=== PATIENT | male | born 1985 | race Caucasian/White ===

== ENCOUNTER 2017-12-22 10:56 | Emergency (ER) | payer SELFPAY ==
[2017-12-22 12:49] LABS: #Eosinphils 0.3 thou/uL (0.0-0.7); #Monocytes 0.7 thou/uL (0.11-0.59); #Neutrophils 3.7 thou/uL (1.40-6.50); %Basophils 0.7 % (0.0-1.0); %Eosinophils 4.2 % (0.0-10.0); %Monocytes 9.7 % (0.0-10.0); %Neutrophils 55.3 % (42.0-75.0); Hemoglobin 14.4 g/dL (14.0-18.0); Mean Corpuscular HGB CONC 34.1 g/dL (32.0-36.0); Mean Corpuscular Hemoglobin 30.5 pg (27.0-31.0); Mean Corpuscular Volume 89.5 fL (78.0-98.0); Mean Platelet Volume 7.7 fL (7.4-10.4); Platelet Count 228 thou/uL (130-400); RBC Distribution Width 11.8 % (11.5-14.5); Red Blood Cell (RBC) Count 4.71 mill/uL (4.70-6.10); White Blood Cell (WBC) Count 6.7 thou/uL (4.8-10.8)
[2017-12-22 13:07] LABS: Bilirubin Negative (Negative); Blood, Urine Negative (Negative); Clarity CLEAR (Clear); Glucose, Urine (Dipstick) Negative (Negative); Leukocyte Negative (Negative); Nitrite Negative (Negative); Protein, Urine (Dipstick) Negative (Neg-Trace); Specific Gravity, Urine 1.019 (1.002-1.036); Urobilinogen 0.2 mg/dL (0.2-1.0)
[2017-12-22 13:10] LABS: ALT (SGPT) 42 U/L (8-55); AST (SGOT) 30 U/L (5-34); Albumin 4.4 g/dL (3.5-5.0); Alkaline Phosphatase 55 U/L (40-150); Anion Gap 11 mmol/L (10-20); BUN (Urea Nitrogen) 19 mg/dL (8.9-20.6); Bilirubin, Total 0.5 mg/dL (0.2-1.2); Calc. Creatinine Clearance 0 mL/min (70-130); Calcium 9.4 mg/dL (7.8-10.44); Carbon Dioxide 25 mmol/L (22-29); Chloride 104 mmol/L (98-107); Estimated GFR-MDRD Greater than 90; Globulin 2.9 g/dL (2.4-3.5); Glucose 110 mg/dL (70-105); Potassium 4.5 mmol/L (3.5-5.1); Protein, Total 7.3 g/dL (6.0-8.3); Sodium 135 mmol/L (136-145)
[2017-12-22] MEDS ORDERED: Dicyclomine 20 MG TAB ONE (14:03)
[2017-12-22] MEDS ORDERED: Ondansetron ODT 4 MG TAB ONE (14:03)
== END 2017-12-22 14:19 | disposition home or self-care (01) ==
LOC: ERS 10:56
DX: R19.7 Diarrhea, unspecified (principal); B20 Human immunodeficiency virus [HIV] disease; F41.9 Anxiety disorder, unspecified; F17.210 Nicotine dependence, cigarettes, uncomplicated
CPT/HCPCS: 36415; 80053; 81003; 82274; 85025; 87045; 87046; 87449; 87899; 99284; Q0162

== ENCOUNTER 2018-01-22 07:09 | Emergency (ER) | payer BC, SELFPAY | END 2018-01-22 08:22 | disposition home or self-care (01) | LOC: ERS 07:09 | DX: J01.90 Acute sinusitis, unspecified (principal); F17.210 Nicotine dependence, cigarettes, uncomplicated | CPT/HCPCS: 99283 ==

== ENCOUNTER 2018-03-08 07:21 | Emergency (ER) | payer BC | END 2018-03-08 08:29 | disposition home or self-care (01) | LOC: ERS 07:21 | DX: M54.5 Low back pain (principal); G89.29 Other chronic pain; F41.9 Anxiety disorder, unspecified; F17.210 Nicotine dependence, cigarettes, uncomplicated; B20 Human immunodeficiency virus [HIV] disease | CPT/HCPCS: 99283 ==

== ENCOUNTER 2018-03-19 07:17 | Emergency (ER) | payer BC ==
[2018-03-19] MEDS ORDERED: Ketorolac Tromethamine 30 MG/ML VIAL ONE (08:18)
[2018-03-19 08:29] LABS: #Basophils 0.1 thou/uL (0.0-0.2); #Eosinphils 0.3 thou/uL (0.0-0.7); #Monocytes 0.7 thou/uL (0.11-0.59); #Neutrophils 4.9 thou/uL (1.40-6.50); %Basophils 0.8 % (0.0-1.0); %Eosinophils 3.9 % (0.0-10.0); %Lymphocytes 24.8 % (21.0-51.0); %Monocytes 8.5 % (0.0-10.0); %Neutrophils 62.1 % (42.0-75.0); Hemoglobin 15.9 g/dL (14.0-18.0); Mean Corpuscular HGB CONC 33.4 g/dL (32.0-36.0); Mean Corpuscular Hemoglobin 30.9 pg (27.0-31.0); Mean Corpuscular Volume 92.4 fL (78.0-98.0); Mean Platelet Volume 8.3 fL (7.4-10.4); Platelet Count 230 thou/uL (130-400); RBC Distribution Width 12.9 % (11.5-14.5); Red Blood Cell (RBC) Count 5.14 mill/uL (4.70-6.10); White Blood Cell (WBC) Count 7.9 thou/uL (4.8-10.8)
[2018-03-19 08:52] LABS: ALT (SGPT) 17 U/L (8-55); AST (SGOT) 16 U/L (5-34); Albumin 4.4 g/dL (3.5-5.0); Alkaline Phosphatase 75 U/L (40-150); Anion Gap 13 mmol/L (10-20); BUN (Urea Nitrogen) 12 mg/dL (8.9-20.6); Bilirubin, Total 0.3 mg/dL (0.2-1.2); Calc. Creatinine Clearance 0 mL/min (70-130); Calcium 9.8 mg/dL (7.8-10.44); Carbon Dioxide 23 mmol/L (22-29); Chloride 106 mmol/L (98-107); Estimated GFR-MDRD 83; Globulin 3.1 g/dL (2.4-3.5); Glucose 123 mg/dL (70-105); Potassium 4.3 mmol/L (3.5-5.1); Protein, Total 7.5 g/dL (6.0-8.3); Sodium 138 mmol/L (136-145)
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
--- NOTE | 2018-03-19 12:43 | MRI ---
MRI CERVICAL SPINE WITHOUT CONTRAST: INDICATION: History of neck pain. COMPARISON: None. FINDINGS: There is diffuse intermediate signal intensity involving the bone marrow of the cervical spine. Visu alized aspects of the posterior fossa are unremarkable appearing. The craniocervical junction appear s within normal limits. At C2-C3, there is no appreciable central canal or neural foraminal narrowing. At C3-4, there is no appreciable central canal or neural foraminal narrowing. At C4-5, there is mild facet joint degenerative change, but no appreciable central canal or neural fo raminal narrowing. At C5-6, there is a small broad-based bulge with mild facet joint degenerative change, but no appreci able central canal or neural foraminal narrowing. At C6-7, there is no appreciable central canal or neural foraminal narrowing. At C7-T1, there is no appreciable central canal or neural foraminal narrowing. The spinal cord demon strates a normal signal intensity and contour. No acute fracture is evident. IMPRESSION: Mild spondylosis of the cervical spine most pronounced at 5-6. POS: [facility]
--- NOTE | 2018-03-19 12:48 | MRI ---
MRI THORACIC SPINE WITHOUT CONTRAST: Indication: Back pain. FINDINGS: There is an acute herniated Schmorl's node involving the superior aspect of T11 with surrounding brendan ow edema involving the upper aspect of T11. No additional marrow signal abnormality is evident. The s nicolas cord demonstrates a normal signal intensity and contour. T1-2: No appreciable central canal or neural foraminal narrowing. T2-3: No appreciable central canal or neural foraminal narrowing. T3-4: No appreciable central canal or neural foraminal narrowing. T4-5: No appreciable central canal or neural foraminal narrowing. T5-6: No appreciable central canal or neural foraminal narrowing. T6-7: No appreciable central canal or neural foraminal narrowing. T7-8: No appreciable central canal or neural foraminal narrowing. T8-9: No appreciable central canal or neural foraminal narrowing. T9-10: No appreciable central canal or neural foraminal narrowing. T10-ll: No appreciable central canal or neural foraminal narrowing. T11-12: No appreciable central canal or neural foraminal narrowing. IMPRESSION: 1. Acute herniated Schmorl's node involving the superior endplate of T11 with mild surrounding edema. 2. No appreciable central canal or neural foraminal narrowing. POS: [facility]
== END 2018-03-19 11:29 | disposition home or self-care (01) ==
LOC: ERS 07:17
DX: M54.16 Radiculopathy, lumbar region (principal); B20 Human immunodeficiency virus [HIV] disease; F17.210 Nicotine dependence, cigarettes, uncomplicated; F41.9 Anxiety disorder, unspecified; Z79.899 Other long term (current) drug therapy
CPT/HCPCS: 36415; 72141; 72146; 72148; 80053; 85025; 85652; 86140; 96374; J1885